=== PATIENT | female | born 1960 | race Caucasian/White ===

== ENCOUNTER 2016-09-24 13:30 | Day surgery (SDC) | payer OTHER ==
[~2016-09-24 13:30] MED LIST: CELEBREX200 MG PO; CYANOCOBALAM1000 MCG PO; LO-DOSE ASPIRIN81 M1 PO; METFORMIN HCL1000 MG PO; SIMVASTATIN20 MG PO; TRAMADOL HCL50 MG PO
[2016-09-24 14:00] LABS: POINT-OF-CARE METER ID UU13113694
== END 2016-09-24 14:45 | disposition home or self-care (01) ==
LOC: PAIN 13:30 → SDC 14:00 → PAIN 14:00
PROVIDERS: Anesthesiology Pain Medicine
DX: M47.26 Other spondylosis with radiculopathy, lumbar region (principal); M79.1 Myalgia; E11.40 Type 2 diabetes mellitus with diabetic neuropathy, unspecified; F17.210 Nicotine dependence, cigarettes, uncomplicated; Z79.891 Long term (current) use of opiate analgesic; Z79.84 Long term (current) use of oral hypoglycemic drugs; Z79.82 Long term (current) use of aspirin
CPT/HCPCS: 82948; J1030; S0020

== ENCOUNTER 2016-10-01 09:33 | Day surgery (SDC) | payer OTHER ==
[~2016-10-01] VITALS: Ht 170.2 cm; Wt 72.7 kg
[~2016-10-01 09:33] MED LIST changes: +FLEXERIL10 MG PO; +TRAMADOL HCL E100 M1 PO; +VICODIN 5-3001 EACH PO
[2016-10-01 10:03] LABS: POINT-OF-CARE METER ID UU13113694
== END 2016-10-01 10:35 | disposition home or self-care (01) ==
LOC: PAIN 09:33 → SDC 10:15 → PAIN 10:15
PROVIDERS: Anesthesiology Pain Medicine
DX: M47.26 Other spondylosis with radiculopathy, lumbar region (principal); I10 Essential (primary) hypertension; M25.551 Pain in right hip; M25.552 Pain in left hip; I67.82 Cerebral ischemia; E11.40 Type 2 diabetes mellitus with diabetic neuropathy, unspecified; E78.1 Pure hyperglyceridemia; M79.1 Myalgia; E66.3 Overweight; Z68.26 Body mass index [BMI] 26.0-26.9, adult; E55.9 Vitamin D deficiency, unspecified; E53.8 Deficiency of other specified B group vitamins; F17.210 Nicotine dependence, cigarettes, uncomplicated; Z79.84 Long term (current) use of oral hypoglycemic drugs; Z79.891 Long term (current) use of opiate analgesic
CPT/HCPCS: 82948; J1030; J2250; J3010; S0020

== ENCOUNTER 2017-04-21 21:58 | Inpatient (IN) | payer OTHER ==
[~2017-04-21] VITALS: Ht 157.5 cm; Wt 74.4 kg
[~2017-04-21 21:58] MED LIST changes: -FLEXERIL10 MG PO; +FLEXERIL5 MG PO; +HYDROCODON-ACE1 EAC7 PO; -METFORMIN HCL1000 MG PO; +METFORMIN HCL500 M1 PO; +ULTRAM50 MG PO; -VICODIN 5-3001 EACH PO
[2017-04-21 22:22] LABS: ALBUMIN 4.2 g/dL (3.2-4.8); CHLORIDE 103 mEq/L (99-109); POTASSIUM 4.6 mEq/L (3.7-5.4); SODIUM 138 mEq/L (136-147)
[2017-04-21 22:25] LABS: GLUCOSE 280 mg/dL (70-99); HEMATOCRIT 41.7 % (36.0-46.0); HEMOGLOBIN 14.2 G/DL (11.9-15.5); MCH 30.8 PG (29.0-34.0); MCHC 34.1 G/DL (30.0-36.0); MCV 90.5 FL (83-99); RBC DIS.WIDTH-CV 12.7 % (11.8-14.6); RBC DIS.WIDTH-SD 41.5 % (39-53); RED BLOOD COUNT 4.61 M/uL (3.80-5.20); TOTAL PROTEIN 7.1 g/dL (6.4-8.3); WHITE BLOOD COUNT 11.6 K/uL (4.1-10.2)
[2017-04-21 22:27] LABS: TOTAL BILIRUBIN 0.4 mg/dL (0.0-1.0)
[2017-04-21 22:28] LABS: ALKALINE PHOSPHATASE 117 IU/L (3-129); SERUM ETHYL ALCOHOL < 10 mg/dL
[2017-04-21 22:29] LABS: CREATININE 0.7 mg/dL (0.6-1.3); GFR ESTIMATE (CALCULATED) > 59 mL/min/
[2017-04-21 22:30] LABS: AST (GOT) 17 IU/L (2-34); UREA NITROGEN (BUN) 15 mg/dL (9-23)
[2017-04-21 22:31] LABS: ALT (GPT) 13 IU/L (3-49)
[2017-04-21 22:34] LABS: INTER. NORMALIZED RATIO 0.9; PTT 29.3 SEC (25-37)
[2017-04-21 22:35] LABS: TROP-I INTERPRETATION NEGATIVE; TROPONIN-I 0.04 ng/mL (0.0-0.30)
[2017-04-21 22:48] LABS: AMYLASE 57 IU/L (1-118)
[2017-04-21 22:57] LABS: BASOPHIL (%) 0.3 % (0-1); EOSINOPHIL (%) 0.9 % (0-5); EOSINOPHIL COUNT 0.1 K/uL (0-0.3); HEMATOLOGY COMMENT 1 SN; IMMATURE GRANULOCYTE (%) 0.3 % (0.0-0.7); LIPASE 13 U/L (1.0-51.0); LYMPHOCYTE COUNT 5.6 K/uL (1.0-2.8); MONOCYTE (%) 6.7 % (3-12); MONOCYTE COUNT 0.8 K/uL (0-0.8); NEUTROPHIL (%) 43.8 % (45-76); NEUTROPHIL COUNT 5.1 K/uL (1.8-6.4); PLAT.SUFFICIENCY ADEQUATE; PLATELET COUNT 259 K/uL (156-360)
[2017-04-21 23:35] VITALS: BP 139/74
[2017-04-21 23:50] VITALS: BP 139/74
[2017-04-22] VITALS (15 sets, daily range): BP systolic 103–139; BP diastolic 59–81
[2017-04-22 05:17] LABS: BASOPHIL (%) 0.4 % (0-1); EOSINOPHIL COUNT 0.1 K/uL (0-0.3); HEMATOCRIT 36.9 % (36.0-46.0); HEMOGLOBIN 12.4 G/DL (11.9-15.5); IMMATURE GRANULOCYTE (%) 0.5 % (0.0-0.7); LYMPHOCYTE (%) 35.1 % (15-42); LYMPHOCYTE COUNT 3.7 K/uL (1.0-2.8); MCH 30.5 PG (29.0-34.0); MCHC 33.6 G/DL (30.0-36.0); MCV 90.7 FL (83-99); MONOCYTE (%) 5.7 % (3-12); MONOCYTE COUNT 0.6 K/uL (0-0.8); NEUTROPHIL (%) 57.3 % (45-76); PLATELET COUNT 248 K/uL (156-360); RBC DIS.WIDTH-CV 12.6 % (11.8-14.6); RBC DIS.WIDTH-SD 41.4 % (39-53); RED BLOOD COUNT 4.07 M/uL (3.80-5.20); WHITE BLOOD COUNT 10.5 K/uL (4.1-10.2)
[2017-04-22 05:37] LABS: TROP-I INTERPRETATION NEGATIVE
[2017-04-22 05:41] LABS: CHLORIDE 105 MEQ/L (99-109); CREATININE 0.5 MG/DL (0.6-1.3); GFR ESTIMATE (CALCULATED) > 59 mL/min/; GLUCOSE 201 mg/dL (70-99); POTASSIUM 4.2 MEQ/L (3.7-5.4); SODIUM 137 MEQ/L (136-147); UREA NITROGEN (BUN) 13 mg/dL (9-23)
[2017-04-22 12:58] LABS: TROP-I INTERPRETATION INDETERMINATE; TROPONIN-I 0.36 ng/mL (0.0-0.30)
[2017-04-22 18:30] LABS: TROP-I INTERPRETATION INDETERMINATE; TROPONIN-I 0.38 ng/mL (0.0-0.30)
[2017-04-23] VITALS (7 sets, daily range): BP systolic 96–130; BP diastolic 49–78
[2017-04-23 05:40] LABS: CHLORIDE 105 MEQ/L (99-109); CREATININE 0.6 MG/DL (0.6-1.3); GFR ESTIMATE (CALCULATED) > 59 mL/min/; GLUCOSE 276 mg/dL (70-99); HDL CHOLESTEROL 34 MG/DL (Desirable>=50); LDL CHOLESTEROL 92 mg/dL (Desirable<100); NON-HDL CHOLESTEROL 128 mg/dL (Desirable<160); POTASSIUM 4.8 MEQ/L (3.7-5.4); SODIUM 137 MEQ/L (136-147); TOTAL CHOLESTEROL 162 mg/dL (Desirable<200); TRIGLYCERIDES 178 MG/DL (Normal: <150); UREA NITROGEN (BUN) 13 mg/dL (9-23)
[2017-04-23 10:00] LABS: HEMOGLOBIN A1c (GLYCOHEMOGLOB) 10.6 % (Below 5.7)
[2017-04-23] MEDS ORDERED: SIMVASTATIN20 MG PO (11:14)
[2017-04-23] MEDS ORDERED: ACTOS45 MG PO (11:14)
[2017-04-23] MEDS ORDERED: BRILINTA90 MG PO (11:42)
[2017-04-23] MEDS ORDERED: ATORVASTATIN CA40 MG PO (11:42)
[2017-04-23] MEDS ORDERED: LOPRESSOR25 MG PO (11:43)
[2017-04-23] MEDS ORDERED: ASPIR-LOW81 MG PO (11:43)
[2017-04-23] MEDS ORDERED: NITROSTAT0.4 MG SL (11:43)
[2017-04-23] MEDS ORDERED: LISINOPRIL2.5 MG PO (11:43)
[2017-04-23] MEDS ORDERED: NICODERM CQ1 EAC2 TD (11:46)
== END 2017-04-23 12:25 | disposition home or self-care (01) | DRG 247 ==
LOC: EME 21:58 → ENRESERV 22:06 → CATH 22:41 → EME 22:41 → 4WEST 23:38
PROVIDERS: Emergency Medicine; Internal Medicine Cardiovascular Disease
DX: I21.11 ST elevation (STEMI) myocardial infarction involving right coronary artery (principal); E11.65 Type 2 diabetes mellitus with hyperglycemia; I25.10 Atherosclerotic heart disease of native coronary artery without angina pectoris; E78.5 Hyperlipidemia, unspecified; I10 Essential (primary) hypertension; E66.9 Obesity, unspecified; Z68.30 Body mass index [BMI] 30.0-30.9, adult; F17.200 Nicotine dependence, unspecified, uncomplicated; Z71.6 Tobacco abuse counseling; Z79.84 Long term (current) use of oral hypoglycemic drugs
CPT/HCPCS: 71045; 80048; 80048 91; 80053; 80061; 81003; 82150; 83036; 83690; 84484; 85025; 85027; 85347; 85610; 85730; 86850; 86900; 86901; 87641; 90832; 93005; 93306; 99281; 99285; C1725; C1769; C1874; C1887; G0480; J1644; J2250; J2270; J3010; J7030